=== PATIENT | female | born 1980 | race American Indian/Alaskan Native ===

== ENCOUNTER 2020-10-12 05:47 | Emergency (ER) | payer OTHER ==
[2020-10-12 06:34] VITALS: BMI 33.4
[2020-10-12] MEDS ORDERED: cefTAZidime PENTAHYDRATE 1 GM/50ML PRE-DOCKED (RESTRICTED TO ID) IVPB ONE (07:53)
[2020-10-12 08:17] LABS: BASO % 0.1 % (0-2.0); EOS % 0.1 % (0-4.5); HEMATOCRIT 42.8 % (32.4-45.2); HEMOGLOBIN 14.5 GM/dL (10.7-15.3); LYMPH % 5.5 % (8-40); MCH 31.5 pg (25.7-33.7); MCHC 33.9 g/dl (32.0-36.0); MEAN CELL VOLUME 92.8 fl (80-96); MONO % 4.1 % (3.8-10.2); NEUT % 90.2 % (42.8-82.8); PLATELET COUNT 249 K/MM3 (134-434); RBC 4.61 M/mm3 (3.60-5.2); RDW 13.5 % (11.6-15.6); WHITE BLOOD COUNT 23.3 K/mm3 (4.0-10.0)
[2020-10-12 08:34] LABS: CALCIUM 8.9 mg/dL (8.5-10.1)
[2020-10-12 08:35] LABS: ALBUMIN 3.4 g/dl (3.4-5.0); BLOOD UREA NITROGEN 7.6 mg/dL (7-18)
[2020-10-12 08:38] LABS: CREATININE 0.7 mg/dL (0.55-1.3)
[2020-10-12 08:39] LABS: BILIRUBIN,TOTAL 1.4 mg/dL (0.2-1); TOT PROT 8.5 g/dl (6.4-8.2)
[2020-10-12] MEDS ORDERED: CEFTRIAXONE 1 GM in DEXTROSE 5%-WATER - 100 ML IVPB ONE (09:02)
[2020-10-12 09:04] LABS: POTASSIUM 6.3 mmol/L (3.5-5.1)
[2020-10-12] MEDS ORDERED: CEFTRIAXONE 1 GM/50 ML BAG ONE (09:06)
[2020-10-12] MEDS ORDERED: SODIUM CHLORIDE 1,000 ML IV STA (09:59)
[2020-10-12] MEDS ORDERED: ACETAMINOPHEN 1000 MG/100 ML VIAL (NON FORMULARY) IVPB ONE (10:47)
[2020-10-12 10:49] VITALS: BP 140/83; PULSE 114; TEMP 99.4
[2020-10-12] MEDS ORDERED: DEXAMETHASONE SOD PHOSPHATE 10 MG/1 ML VIAL IVPUSH ONE (11:16)
[2020-10-12] MEDS ORDERED: DEXAMETHASONE SOD PHOSPHATE 10 MG/1 ML VIAL ONE (11:20)
[2020-10-12 12:02] LABS: ANISOCYTOSIS 0; MACROCYTOSIS 0; PLATELET ESTIMATE NORMAL
== END 2020-10-12 12:55 | disposition home or self-care (01) ==
LOC: JER 05:47
PROC: 3E03329 Introduction of Other Anti-infective into Peripheral Vein, Percutaneous Approach (ICD-10-PCS; principal; 2020-10-12)
PROC: 3E033NZ Introduction of Analgesics, Hypnotics, Sedatives into Peripheral Vein, Percutaneous Approach (ICD-10-PCS; 2020-10-12)
PROC: 3E033GC Introduction of Other Therapeutic Substance into Peripheral Vein, Percutaneous Approach (ICD-10-PCS; 2020-10-12)
PROC: 3E0337Z Introduction of Electrolytic and Water Balance Substance into Peripheral Vein, Percutaneous Approach (ICD-10-PCS; 2020-10-12)
DX: R22.0 Localized swelling, mass and lump, head (principal); K11.3 Abscess of salivary gland
CPT/HCPCS: 36415; 70491-TC; 80053; 84132; 85025; 86308; 87070; 87880; 99285-25; J0131; J1100; Q9967